=== PATIENT | male | born 1990 | race African-American/Black ===

== ENCOUNTER 2018-01-02 18:40 | Emergency (ER) | payer OTHER ==
[2018-01-02] MEDS ORDERED: PENICILLIN VK 250 MG TABLET PO STA (20:11)
[2018-01-02] MEDS ORDERED: DEXAMETHASONE 10 MG/ML VIAL PO STA (20:11)
--- NOTE | 2018-01-02 20:22 | ED Physician Documentation ---
PD HPI HEENT - Stated complaint Stated Complaint: THROAT PX - Chief complaint Chief Complaint: General - History obtained from History obtained from: Patient - History of Present Illness Timing - onset: How many days ago (5) Timing - details: Gradual onset, Still present Location: Throat Worsens: Swalllowing Associated symptoms: Congestion, Swollen nodes. No: Fever Similar symptoms before: Work up / diagnostics, Treatment Recently seen: Clinic - Additional information Additional information: patient is a 27 year old male presenting to the emergency department for throat pain and swelling. patient states that the symptoms have been going on for the last few days. patient was seen by base doctor who started him on a z pack but things seemed to get worse. Review of Systems Ten Systems: 10 systems reviewed and negative Constitutional: denies: Fever, Chills Throat: reports: Sore throat, Swollen tonsils PD PAST MEDICAL HISTORY - Past Medical History Past Medical History: Yes HEENT: Chronic sinusitis - Past Surgical History Past Surgical History: No - Present Medications Home Medications: Ambulatory Orders Medication Instructions Recorded Confirmed Fexofenadine HCl [Rika Allergy] 1 tab PO DAILY 12/02/15 12/02/15 Fluticasone [Flonase] 12/02/15 Azithromycin 250 mg PO 01/02/18 Penicillin V Potassium 500 mg PO Q6HR 10 Days tablet 01/02/18 - Allergies Allergies/Adverse Reactions: Allergies Allergy/AdvReac Type Severity Reaction Status Date / Time No Known Drug Allergies Allergy Verified 01/02/18 18:55 - Social History Does the pt smoke?: No Smoking Status: Never smoker Does the pt drink ETOH?: Yes Does the pt have substance abuse?: No - Immunizations Immunizations are current?: Yes PD ED PE NORMAL - Vitals Vital signs reviewed: Yes - General General: Alert and oriented X 3 - HEENT HEENT: Atraumatic, Ears normal, Moist mucous membranes - Neck Neck: Supple, no meningeal sign - Cardiac Cardiac: RRR - Respiratory Respiratory: No respiratory distress - Derm Derm: Normal color - Neuro Neuro: Alert and oriented X 3 Eye Opening: Spontaneous - Psych Psych: Normal mood PD ED PE EXPANDED - HEENT HEENT: Pharyngeal erythema, Swollen tonsils. 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 rapid strep was performed and was negative. Patient clinically had strep throat. Patient was treated with decadron and started on pen vk. Patient was able to swallow without difficulty. Patient required no further work up and was stable for discharge with outpatient follow up. Departure - Departure Disposition: 01 Home, Self Care Clinical Impression: Pharyngitis Condition: Good Instructions: ED Strep Pharyngitis Poss Follow-Up: primary, care provider [Other] Prescriptions: Penicillin V Potassium 500 mg PO Q6HR 10 Days tablet Comments: Your rapid strep was negative today but you clinically have strep throat. You are being started on pen vk. You will take it 4 times a day for the next 10 day. You should follow up with your doctor for further evaluation and care. Discharge Date/Time: 01/02/18 20:29
[2018-01-02] MEDS ORDERED: CHERRY SYRUP 10 ML UDC PO ONE (20:32)
[2018-01-02 20:33] VITALS: BP 112/69
== END 2018-01-02 20:29 | disposition home or self-care (01) ==
LOC: ED 18:40
DX: J02.9 Acute pharyngitis, unspecified (principal)
CPT/HCPCS: 87070; 87430; 99283; A9270